=== PATIENT | female | born 1970 | race Caucasian/White ===

== ENCOUNTER 2022-05-10 11:35 | Outpatient (CLI) | payer OTHER | END 2022-05-10 11:36 | disposition home or self-care (01) | LOC: SCSRAD 11:35 | PROVIDERS: ATTEND Physician Assistant Medical | DX: R10.84 Generalized abdominal pain (principal); K59.00 Constipation, unspecified | CPT/HCPCS: 74018 ==

== ENCOUNTER 2022-05-12 15:52 | Outpatient (CLI) | payer OTHER | END 2022-05-12 15:53 | disposition home or self-care (01) | LOC: SCSRAD 15:52 | PROVIDERS: ATTEND Physician Assistant Medical | DX: K59.00 Constipation, unspecified (principal) | CPT/HCPCS: 74018 ==